=== PATIENT | female | born 1960 | race Caucasian/White ===

== ENCOUNTER 2023-07-26 16:10 | Emergency (ER) | payer BC, SELFPAY ==
[2023-07-26 16:15] VITALS: BP 157/96
[2023-07-26 16:48] LABS: % Basophils 0.4 % (0-2); % Eosinophils 0.1 % (0-6); % Immature Granulocytes 0.5 % (0-0.5); % Monocytes 5.9 % (1.7-9.3); % Neutrophils 73.1 % (42.2-75.2); Absolute Basophils 0.1 10^3/uL (0-0.2); Absolute Immature Granulocytes 0.1 10^3/uL (0-0.05); Absolute Lymphocytes 2.9 10^3/uL (1.2-3.4); Absolute Monocytes 0.9 10^3/uL (0.1-0.6); Absolute Neutrophils 10.7 10^3/uL (1.4-6.5); Hematocrit 48.6 % (37.0-47.0); Hemoglobin 17.1 g/dL (12.0-16.0); Mean Corp Hgb Conc. 35.2 g/dL (33.0-37.0); Mean Corpuscular Hgb 28.5 pg (27.0-31.0); Mean Corpuscular Volume 80.9 fL (81.0-99.0); Mean Platelet Volume 9.7 fL (7.4-10.4); Nucleated Red Blood Cells % 0 %; Platelet Count 405 10^3/uL (130-400); Red Blood Cell Count 6.01 10^6/uL (4.20-5.40); White Blood Cell Count 14.6 10^3/uL (4.8-10.8)
[2023-07-26 17:02] LABS: ALT (SGPT) 24 U/L (0-35); AST (SGOT) 25 U/L (14-36); Albumin 4.7 g/dl (3.5-5.0); Alkaline Phosphatase 80 U/L (38-126); Blood Urea Nitrogen 39 mg/dl (7-17); Carbon Dioxide 22 mmol/L (22-30); Chloride 102 mmol/L (98-107); Glucose 145 mg/dl (70-99); Potassium 4.9 mmol/L (3.5-5.1); Sodium 138 mmol/L (135-145); Total Bilirubin 1.1 mg/dl (0.2-1.3); Total Protein 8.1 g/dl (6.3-8.2); eGFR 56.81
[2023-07-26] MEDS: NSS 1000 IV (18:25)
[2023-07-26] MEDS: PEPCID 20 MG IV (18:26)
[2023-07-26] MEDS: ZOFRAN 4 MG IV (18:26)
--- NOTE | 2023-07-26 18:31 | ED.GENMED ---
History of Present Illness
General
Chief Complaint: Cold/Flu/URI Symptoms
Source: patient
Exam Limitations: none
Time Seen by Provider: 07/26/23 17:54
Travel History
Have you had any contact with someone who has COVID-19?: No
Do you have any symptoms of coronavirus? Fever > 100 degrees, chills, cough, shortness of breath, sore throat, loss of taste or smell, muscle aches, or headache?: No
History of Present Illness
History of Present Illness:
62-year-old female presents with 2 to 3 days worth of nausea vomiting and diarrhea. She notes chills and sweats but no measurable fever. No known sick contacts. She denies any significant abdominal pain. No blood in the vomit or the stool. She
cannot keep anything down at home. No other complaints at this time
Past History
Past History
ED Past Medical History: Psychiatric (anxiety)
Patient has exhibited threatening behavior?: No
PSI?: No
Social History
Tobacco: Non-smoker
Alcohol: None
Drug: None
Personal:
Living: with family
Phy Exam
Physical Exam
Physical Exam:
General: Well-appearing female no acute respiratory distress
HEENT: Normocephalic atraumatic mucosa dry
Heart: Regular rate and rhythm no murmurs
Lungs: Clear to auscultation bilaterally no wheezing
Abdomen is soft nontender nondistended no guarding or rebound normal bowel sounds
Extremities: No cyanosis or edema
Skin: Warm no rash
Course
Orders/Labs/Results
Orders:
Orders
07/26/23 16:20
Electrocardiogram (*1) Urgent
Reason for Study: Abdominal Pain
EKG- Treatment ONCE
07/26/23 16:38
CMP [Comprehensive Metabolic Panel] Urgent
Complete Blood Count/With Diff Urgent
07/26/23 18:15
0.9% Sodium Chloride 1000 ml [Nss] 1,000 ml IV BOLUS
Famotidine [Pepcid] 20 mg IV NOW STA
Ondansetron Injectable [Zofran] 4 mg IV NOW STA
Abnormal Lab Results
07/26/23
16:38
WBC 14.6 H 10^3/uL
(4.8-10.8)
RBC 6.01 H 10^6/uL
(4.20-5.40)
Hgb 17.1 H g/dL
(12.0-16.0)
Hct 48.6 H %
(37.0-47.0)
MCV 80.9 L fL
(81.0-99.0)
Plt Count 405 H 10^3/uL
(130-400)
Abs Immat Gran (auto) 0.1 H 10^3/uL
(0-0.05)
Absolute Neuts (auto) 10.7 H 10^3/uL
(1.4-6.5)
Absolute Monos (auto) 0.9 H 10^3/uL
(0.1-0.6)
Lymphocytes % 20.0 L %
(20.5-51.1)
BUN 39 H mg/dl
(7-17)
Creatinine 1.1 H mg/dL
(0.6-1.0)
Glucose 145 H mg/dl
(70-99)
Calcium 11.0 H mg/dl
(8.4-10.2)
07/26/23 16:38
07/26/23 16:38
Vital Signs
Initial and Last Documented VS:
Initial Vital Signs
Temp Pulse Resp BP Pulse Ox
98.2 F 151 20 157/96 98
07/26/23 16:15 07/26/23 16:15 07/26/23 16:15 07/26/23 16:15 07/26/23 16:15
Last Documented Vital Signs
Temp Pulse Resp BP Pulse Ox
98.2 F 151 20 157/96 98
07/26/23 16:15 07/26/23 16:15 07/26/23 16:15 07/26/23 16:15 07/26/23 16:15
MDM/Problems Addressed
Differential Diagnosis Includes:
Vomiting nausea diarrhea. Consider viral illness. No signs of obstruction on exam. Patient nontender do not suspect the need for any CAT scan imaging.
Check labs. Will hydrate give Zofran and Pepcid.
*Critical Care Note
Total Time (30-74mins, 75-104mins- exclusive of procedures): Not Applicable
Update Note
Update Note:
Patient feeling better after fluids and Zofran. Now tolerating oral fluids without vomiting. Abdomen exam remains benign upon reassessment. Again no need for imaging at this point. Will discharge home with Zofran and instructions for clear
liquids and bland diet.
ED Attending Note
-
Portions of this chart may have been created with voice recognition software.� Occasional wrong word or��sound alike� substitutions may have occurred due to the inherent limitations of voice recognition software.
Discharge Plan
Departure
Patient Disposition: Home (Routine Discharge)
Date of Disposition: 07/26/23
Time of Disposition: 20:00
Patient with high blood pressure during this ER visit?: No
Discharge Problem:
Vomiting and diarrhea
Instructions: Viral Gastroenteritis, Adult (DC)
Prescriptions:
New
ondansetron 4 mg tablet,disintegrating
4 mg PO Q8H PRN (Reason: nausea and vomiting) Qty: 10 0RF
No Action
sertraline 100 MG tablet
100 mg PO DAILY
ibuprofen 200 MG tablet
600 mg PO Q6HPRN PRN (Reason: PAIN)
ciprofloxacin HCl 500 MG tablet
500 mg PO BID Qty: 14 0RF
aspirin,buffd-calcium carb-mag [Tri-Buffered Aspirin] 325 MG tablet
325 mg PO DAILY 0RF
oxycodone 5 MG tablet
5 mg PO Q4HPRN PRN (Reason: moderate pain) 0RF
tamsulosin [Flomax] 0.4 mg capsule
0.4 mg PO DAILY Qty: 7 0RF
Referrals:
Yamileth Patrick PA-C [Family Provider] -
Activity Restrictions/Additional Instructions:
Drink plenty clear liquids. Use Zofran if needed for nausea. Advance to bland diet as tolerated. Return for worsening symptoms otherwise follow-up with family doctor
Interventions
Interventions:
ED- Pulmonary Assessment Last Done: 07/26/23 18:29
[2023-07-26 20:11] VITALS: BP 191/111
[2023-07-26 20:30] VITALS: BP 191/111
== END 2023-07-26 20:32 | disposition home or self-care (01) ==
LOC: EMR 16:10
PROVIDERS: EMERGENCY PHYSICIAN Emergency Medicine; FAMILY PHYSICIAN Physician Assistant Medical
DX: R19.7 Diarrhea, unspecified (principal); R11.2 Nausea with vomiting, unspecified
CPT/HCPCS: 99284; 96374; 96375; 96361; 80053; 85025; 93005

== ENCOUNTER → 2023-08-31 17:32 | Outpatient (REF) | payer BC, SELFPAY | LOC: PAVMRI 17:32 | PROVIDERS: ATTENDING PHYSICIAN Orthopaedic Surgery; FAMILY PHYSICIAN Physician Assistant Medical | DX: M25.551 Pain in right hip (principal) | CPT/HCPCS: 73721 ==

== ENCOUNTER → 2023-09-14 12:06 | Outpatient (REF) | payer BC, SELFPAY | LOC: RAD 12:06 | PROVIDERS: ATTENDING PHYSICIAN Physician Assistant Medical | DX: R10.31 Right lower quadrant pain (principal) | CPT/HCPCS: 74177; Q9967 ==

== ENCOUNTER → 2023-10-01 06:21 | Outpatient (REF) | payer BC, SELFPAY | LOC: MRI 06:21 | PROVIDERS: ATTENDING PHYSICIAN Orthopaedic Surgery; FAMILY PHYSICIAN Physician Assistant Medical | DX: M54.50 Low back pain, unspecified (principal) | CPT/HCPCS: 72148 ==

== ENCOUNTER → 2024-08-13 11:13 | Outpatient (REF) | payer BC, SELFPAY | LOC: WDC 11:13 | PROVIDERS: ATTENDING PHYSICIAN Obstetrics & Gynecology Gynecology; FAMILY PHYSICIAN Physician Assistant Medical | DX: Z12.31 Encounter for screening mammogram for malignant neoplasm of breast (principal) | CPT/HCPCS: 77063; 77067 ==